=== PATIENT | female | born 1975 | race African-American/Black ===

== ENCOUNTER 2016-10-31 22:51 | Emergency (ER) | payer OTHER ==
[~2016-10-31] VITALS: Ht 157.5 cm; Wt 54.5 kg
[2016-10-31 23:59] VITALS: BP 118/87
== END 2016-11-01 00:03 | disposition home or self-care (01) ==
LOC: EMS 22:52
DX: H10.13 Acute atopic conjunctivitis, bilateral (principal); J06.9 Acute upper respiratory infection, unspecified; R21 Rash and other nonspecific skin eruption; F17.210 Nicotine dependence, cigarettes, uncomplicated; Z88.0 Allergy status to penicillin
CPT/HCPCS: 99283

== ENCOUNTER 2017-02-12 21:44 | Emergency (ER) | payer OTHER ==
[~2017-02-12] VITALS: Ht 157.5 cm; Wt 54.0 kg
[2017-02-12 21:57] VITALS: BP 113/58
== END 2017-02-12 22:43 | disposition home or self-care (01) ==
LOC: EMS 21:46
DX: T65.891A Toxic effect of other specified substances, accidental (unintentional), initial encounter (principal); F17.210 Nicotine dependence, cigarettes, uncomplicated; Z88.0 Allergy status to penicillin; Y92.89 Other specified places as the place of occurrence of the external cause
CPT/HCPCS: 99281

== ENCOUNTER 2017-09-10 04:05 | Emergency (ER) | payer OTHER ==
[~2017-09-10] VITALS: Ht 157.5 cm; Wt 59.1 kg
[2017-09-10 05:42] VITALS: BP 99/65
== END 2017-09-10 06:42 | disposition home or self-care (01) ==
LOC: EMS 04:05
DX: N76.0 Acute vaginitis (principal); F17.210 Nicotine dependence, cigarettes, uncomplicated; Z88.0 Allergy status to penicillin
CPT/HCPCS: 99283; 99406

== ENCOUNTER 2019-01-23 18:05 | Emergency (ER) | payer OTHER ==
[~2019-01-23] VITALS: Ht 157.5 cm; Wt 45.5 kg
[2019-01-23] MEDS ORDERED: KETOROLAC TROMETHAMINE 60 MG/2 ML VIAL IM ONE (19:00)
[2019-01-23 20:28] VITALS: BP 127/69
== END 2019-01-23 20:35 | disposition home or self-care (01) ==
LOC: EMS 18:07
DX: M25.511 Pain in right shoulder (principal); F31.9 Bipolar disorder, unspecified; F41.9 Anxiety disorder, unspecified; F17.210 Nicotine dependence, cigarettes, uncomplicated; Z88.0 Allergy status to penicillin
CPT/HCPCS: 29105; 73030; 96372; 99283; J1885

== ENCOUNTER 2019-10-19 18:42 | Emergency (ER) | payer OTHER ==
[~2019-10-19] VITALS: Ht 157.5 cm; Wt 55.0 kg
[2019-10-19 19:33] VITALS: BP 122/83
[2019-10-19] MEDS ORDERED: KETOROLAC TROMETHAMINE 30 MG/ML VIAL IM ONE (19:45)
== END 2019-10-19 19:45 | disposition left against medical advice (07) ==
LOC: EMS 18:44
DX: M77.11 Lateral epicondylitis, right elbow (principal); F17.210 Nicotine dependence, cigarettes, uncomplicated; F31.9 Bipolar disorder, unspecified; F41.9 Anxiety disorder, unspecified; Z88.0 Allergy status to penicillin

== ENCOUNTER 2019-11-27 07:13 | Emergency (ER) | payer OTHER ==
[~2019-11-27] VITALS: Ht 157.5 cm; Wt 56.8 kg
[2019-11-27] MEDS ORDERED: IBUPROFEN 600 MG TABLET PO ONE (08:00)
[2019-11-27 08:35] VITALS: BP 108/73
== END 2019-11-27 08:51 | disposition home or self-care (01) ==
LOC: EMS 07:17
DX: M77.11 Lateral epicondylitis, right elbow (principal); F17.210 Nicotine dependence, cigarettes, uncomplicated; F41.9 Anxiety disorder, unspecified; F31.9 Bipolar disorder, unspecified; Z88.0 Allergy status to penicillin
CPT/HCPCS: 99406; Z7502; Z7610

== ENCOUNTER 2021-05-08 22:40 | Emergency (ER) | payer OTHER ==
[~2021-05-08] VITALS: Ht 157.5 cm; Wt 57.6 kg
[2021-05-09 00:15] LABS: BASOPHILS % (AUTO) 1.6 % (0.0-2.0); EOSINOPHILS % (AUTO) 7.3 % (1.0-6.0); HEMATOCRIT 32.1 % (36-46); LYMPHOCYTES # (AUTO) 1.9 K/uL (1.0-4.8); LYMPHOCYTES % (AUTO) 39.6 % (22.0-44.0); MEAN CORPUSCULAR HEMOGLOBIN 30.4 pg (26.0-34.0); MEAN CORPUSCULAR HGB CONC 34.1 G/dL (31.0-37.0); MEAN CORPUSCULAR VOLUME 89 fL (80-100); MONOCYTES # (AUTO) 0.5 K/uL (0.1-1.0); MONOCYTES % (AUTO) 9.4 % (2.0-9.0); NEUTROPHILS % (AUTO) 42.1 % (40.0-70.0); PLATELET COUNT (AUTO) 249 K/uL (150-450); RED CELL DISTRIBUTION WIDTH 13.4 % (11.5-14.5)
[2021-05-09 00:22] LABS: ANION GAP 11 mmol/L (8-16); CALCIUM, TOTAL 8.6 mg/dL (8.8-10.5); CARBON DIOXIDE 27 mmol/L (22-29); CHLORIDE 102 mmol/L (98-107); CREATININE 0.75 mg/dL (0.60-1.30); GLOMERULAR FILTR. RATE CALC > 60 mL/min (>60); GLUCOSE,RANDOM 114 mg/dL (70-110); POTASSIUM 3.1 mmol/L (3.5-5.1); SODIUM SERUM 140 mmol/L (136-145); UREA NITROGEN, BLOOD 14 mg/dL (7-18)
[2021-05-09 00:27] LABS: AMPHET/METH SCREEN,URINE POSITIVE (NEGATIVE); BARBITURATE SCREEN, URINE NEGATIVE (NEGATIVE); BENZODIAZEPINES SCREEN,URINE NEGATIVE (NEGATIVE); CANNABINOID SCREEN,URINE NEGATIVE (NEGATIVE); COCAINE SCREEN,URINE POSITIVE (NEGATIVE); METHADONE SCREEN, URINE NEGATIVE (NEGATIVE); OPIATE SCREEN,URINE NEGATIVE (NEGATIVE)
[2021-05-09 00:30] LABS: PHENCYCLIDINE SCREEN,URINE POSITIVE (NEGATIVE)
[2021-05-09 01:02] VITALS: BP 106/58
== END 2021-05-09 03:06 | disposition home or self-care (01) ==
LOC: EMS 22:42
DX: N93.8 Other specified abnormal uterine and vaginal bleeding (principal); F15.10 Other stimulant abuse, uncomplicated; F14.10 Cocaine abuse, uncomplicated; F16.10 Hallucinogen abuse, uncomplicated; F31.9 Bipolar disorder, unspecified; F41.9 Anxiety disorder, unspecified; F17.210 Nicotine dependence, cigarettes, uncomplicated; Z88.0 Allergy status to penicillin
CPT/HCPCS: 80048; 84703; 85025; 99283

== ENCOUNTER 2021-12-15 23:48 | Emergency (ER) | payer OTHER ==
[~2021-12-15] VITALS: Ht 157.5 cm; Wt 59.1 kg
[2021-12-15 23:53] VITALS: BP 132/78
[2021-12-16] MEDS ORDERED: DEXAMETHASONE 4 MG TABLET PO ONE (02:15)
== END 2021-12-16 02:41 | disposition home or self-care (01) ==
LOC: EMS 23:49
DX: J02.9 Acute pharyngitis, unspecified (principal); F41.9 Anxiety disorder, unspecified; F31.9 Bipolar disorder, unspecified; F17.210 Nicotine dependence, cigarettes, uncomplicated; F15.90 Other stimulant use, unspecified, uncomplicated; Z87.39 Personal history of other diseases of the musculoskeletal system and connective tissue; Z98.51 Tubal ligation status; Z88.0 Allergy status to penicillin
CPT/HCPCS: 99283; J8540